=== PATIENT | female | born 1945 | race Caucasian/White ===

== ENCOUNTER → 2017-01-20 | Outpatient (CLI) | payer MEDICARE, OTHER ==
--- NOTE | 2017-01-20 22:56 | HKNOTE ---
DATE OF SERVICE: 01/20/2017 MAIN COMPLAINT: Pain in both knees. HISTORY OF MAIN COMPLAINT: The patient is a 71-year-old female who complains of pain in both knees. She has had trouble with her knees since she was a child, at age 14. She thinks she may have had recurrent dislocation of at least 1 patella. For 15 years, the patient is under the care of Dr. Roderick Dinh in [place]. He told her that she would eventually need bilateral knee replacements, but that "to wait until something better comes along." The pain has become very much worse in the past few months. She has had many cortisone injections i nto both knees and she also had Orthovisc into the left knee in August. This last injection gave her no relief whatsoever. The patient also has pain in her lower back. She fell and injured her back in 2006. She has had ph ysical therapy and chiropractic treatments for her back. She does not think she has had an MRI scan of the lower back. PRESENT COMPLAINTS: Pain in the lower back. Pain varies with twisting or stair climbing. Pain in both knees, worse on the left side. The patient gets pain in both knees every day. On a bad day, s he gets pain with every step. On a bad day, she can walk no more than a block or so using a cane. The knees do not lock or feel u nstable. The worst pain is going up and down stairs. She infrequently gets rest pain or night pain . She has tried taking Tylenol ("bothers my stomach"). NOTE THAT SHE IS ALLERGIC TO ALMOST ALL NSA IDS AND HE IS UNABLE TO TAKE NSAIDS FOR HER KNEE CONDITION. She limps some of the time. She does n ot have a shoe lift. She can clip her toenails and tie her shoelaces, but it is difficult. SPORTING ACTIVITIES: The patient used to play tennis and swim and bike. She has had to discontinue most of that. She is still doing weightlifting with light weights. PAST ORTHOPEDIC HISTORY: PREVIOUS ORTHOPEDIC OPERATIONS: None. PRIOR CORTISONE INTAKE: Yes, as above. The patient has also taken cortisone for asthma. ALCOHOL INTAKE: One a month. OTHER JOINT PROBLEMS: Pain in the left hip (groin). BLOOD TESTS FOR ARTHRITIS: "Yes, osteoarthritis". PRIOR INJURIES TO HIPS OR KNEES: None. WORK STATUS: The patient sits at a computer most of the day. PAST MEDICAL HISTORY: 1. Asthma. 2. Skin cancer of the face. 3. Mitral valve prolapse. 4. A "white spot" on the brain. 5. Anxiety disorder. 6. Chronic obstructive pulmonary disease. PAST SURGICAL HISTORY: 1. Mohs procedure at the age of 24 and 44. 2. Breast implants 35 years ago. 3. Carpal tunnel release, both hands. 4. Partial facelift. 5. Cataract surgery, both eyes. ALLERGIES: SEVERELY ALLERGIC TO CODEINE. MEDICATIONS: 1. Calcium. 2. Magnesium. 3. Zinc. 4. Glucosamine sulfate. 5. [place] 3 oil. FAMILY HISTORY: Father at 65 of heart problems. Mother at 84 from cancer. SYSTEMS REVIEW: Prone to dyspepsia, history of pneumonia, leakage of urine, cardiac defect. Otherw ise negative. HABITS: The patient does not smoke. She drinks 1 alcoholic beverage a month. PHYSICAL EXAMINATION: GENERAL: The patient is an extremely fit looking and youthful 71-year-old female. The patient is a lert, oriented, cooperative, and of good color. VITAL SIGNS: Height 5 feet 8 inches, weight 210 pounds. Blood pressure 145/70, temperature 98.7. RIGHT HIP: A full range of motion without pain. LEFT HIP: A full range of motion with pain in the left groin at limits of motion. LEFT KNEE: The left knee shows normal alignment. Active and passive extension is 0 degrees. Activ e and passive flexion lacks 25 degrees (markedly painful). The medial and lateral collateral ligame nts and cruciate ligaments are intact. Nereyda test is negative. There is no effusion, tenderness, scarring, or cysts. 4+ crepitus in the knee, none in the patella. The patella tracks normally. T here is no tenderness on the articular surface of the patella or in the patellar groove. The Q angl e is normal. RIGHT KNEE: The right knee shows normal alignment. Active and passive extension is 0 degrees. Act jeremías and passive flexion lacks 15 degrees (markedly painful). The medial and lateral collateral liga ments and cruciate ligaments are intact. Nereyda test is negative. There is no effusion, tendernes s, scarring, or cysts. 6+ crepitus in the knee, none in the patella. The patella tracks normally. There is no tenderness on the articular surface of the patella or in the patellar groove. The Q an gle is normal. IMAGING: Plain x-rays of the left ____ obtained today at the [facility] reviewed . These show marked narrowing of the medial joint space and severe narrowing of the patellofemoral joint space. There appear to be multiple loose bodies in the posterior aspect of the joint. Imaging of the right knee obtained today shows similar changes, but to a lesser degree, especially i n the medial compartment. Note that the patellofemoral joint on both knees show exceedingly severe arthritis with complete los s of joint space, subchondral sclerosis, intraosseous cyst formation, and osteophyte formation. Imaging of the left hip obtained today show approximately 60% narrowing of the hip joint space. Goo d bone quality. DIAGNOSES: 1. Severe symptomatic degenerative osteoarthritis of the left knee, failed conservative treatment. 2. Moderate degenerative osteoarthritis of the right knee. 3. Asthma. 4. Mitral valve prolapse. 5. Moderate degenerative osteoarthritis of the left hip. MANAGEMENT: The patient advised that Dr. Enrrique Dinh has been recommending knee replacement surger y for 15 years, now since it has become so severe that she is quite markedly incapacitated. She ind icates that she is "ready to consider knee replacement surgery." The operation of total knee replacement was discussed with her in a great deal of detail including s ome of the major possible complications. The patient was given my manual titled "Arthritis of the K nee Joint" which contains information concerning the various alternatives of treatment. It includes various forms of conservative treatment, including the use of nonsteroidal anti-inflammatory medica tions and their dangers. Various surgical alternatives are discussed. The technique of total knee replacement is discussed in detail, including possible complications. Included also is a section on the possible complications of blood transfusion, a section on postoperative precautions, and an exe rcise program to follow at home after total knee replacement. The long-term care of a total knee re placement implant is also covered in detail. The patient was instructed to read this manual in its entirety since it is, in and of itself, a form of informed consent. After reading this manual, the patient will make a list of further questions that may not have been covered adequately. The patien t was further advised that this manual, although exhaustive in nature, is only intended to supplemen t and complement a one-on-one discussion with me. The patient was referred to my website, [employer]. FINAL DIAGNOSES: 1. Severe symptomatic degenerative osteoarthritis of the left knee, failed conservative treatment. 2. Moderate degenerative osteoarthritis of the right knee. 3. Asthma. 4. Mitral valve prolapse. 5. Moderate degenerative osteoarthritis of the left hip. The patient will call to schedule her left knee replacement when she is ready to proceed. FOOTNOTE: We will inject some cortisone into her left hip while she is under anesthesia. Meanwhile , she will visit her suction worker and certified green building engineer for consultation in preparation for scheduling her s urgery. Dictated By: ROSIBEL SANDERS/MALU Conf#: [id number] DID#: [id number]
--- NOTE | 2017-01-21 11:53 | RADRPT ---
PROCEDURE: XR bilateral knees. CLINICAL INDICATION: Knee pain TECHNIQUE: AP weightbearing, lateral weightbearing and sunrise views are available for review. COMPARISON: None available FINDINGS: Right knee: There is moderate osteoarthrosis involving the right medial tibial femoral compartment and patellofe moral compartment .This is associated with joint space narrowing, subchondral sclerosis and osteophy tosis. Left knee: There is moderate osteoarthrosis involving the left medial tibial femoral compartment and mild oste oarthrosis involving the patellofemoral compartment. This is associated with joint space narrowing, subchondral sclerosis and osteophytosis. There are multiple small calcified loose bodies in the left posterior joint. There is otherwise normal mineralization, architecture and alignment. No fractures are identified. No osseous lesions are identified. The soft tissues are unremarkable. IMPRESSION: Moderate osteoarthrosis involving the right medial tibial femoral compartment and patellofemoral com partment Moderate osteoarthrosis involving the left medial tibial femoral compartment and mild osteoarthrosis involving the patellofemoral compartment. Multiple small calcified loose bodies in the left posterior joint. RPTAT: HGDB .Praneeth Stewart MD, Date Time Electronically viewed and signed by .Praneeth Stewart MD, on 01/21/2017 11:53 .B/
--- NOTE | 2017-01-21 11:54 | RADRPT ---
PROCEDURE: XR left hip. CLINICAL INDICATION: Hip pain TECHNIQUE: AP view performed COMPARISON: No prior studies are available for comparison. FINDINGS: There is moderate left hip osteoarthrosis. This is associated with joint space narrowing, subchondra l sclerosis and osteophytosis. There is normal mineralization. No fractures or osseous lesions are identified. The soft tissues are unremarkable. IMPRESSION: Moderate left hip osteoarthrosis. RPTAT: HGDB .Praneeth Stewart MD, MD Date Time Electronically viewed and signed by .Praneeth Stewart MD, on 01/21/2017 11:54 .B/
== END | disposition home or self-care (01) ==
LOC: HKI 14:48
DX: M17.0 Bilateral primary osteoarthritis of knee (principal); J45.909 Unspecified asthma, uncomplicated; I34.1 Nonrheumatic mitral (valve) prolapse; M16.12 Unilateral primary osteoarthritis, left hip
CPT/HCPCS: 73501; 73562; G0463

== ENCOUNTER → 2017-02-16 | Outpatient (CLI) | payer MEDICARE, OTHER ==
[~2017-02-16] MED LIST: AMLO5TAB4 PO
--- NOTE | 2017-02-17 11:32 | HKNOTE ---
DATE OF SERVICE: 02/16/2017 The patient comes in for preoperative evaluation. She is scheduled to have a left total knee replac ement on 02/17/2017. She has been cleared for surgery by her inpatient services rn, Dr. Paul Rodriguez. Numerou s questions were asked and answered. The patient has not had any real major surgeries in the past a nd the small ones she has had were uneventful. She has not given any blood for transfusion. She un derstands the risks associated with using hospital blood. She is agreeable to using hospital blood if needed. Dictated By: ROSIBEL SANDERS/NTS Conf#: [id number] DID#: [id number]
== END | disposition home or self-care (01) ==
LOC: HKI 13:23
DX: Z01.818 Encounter for other preprocedural examination (principal); M25.562 Pain in left knee
CPT/HCPCS: G0463

== ENCOUNTER 2017-02-17 05:21 | Inpatient (IN) | payer OTHER, MEDICARE ==
[2017-02-16 11:00] VITALS: BMI 32.2
[2017-02-17] VITALS (29 sets, daily range): BP systolic 110–170; BP diastolic 55–83; PULSE 54–95; RESP 3–20; Ht 175.3 cm; Wt 97.8 kg
[~2017-02-17] VITALS: Ht 175.3 cm; Wt 97.8 kg
[2017-02-17] MEDS ORDERED: KNEE PAIN COCKTAIL VANCO INJ SCH ×6 (05:30)
[2017-02-17] MEDS ORDERED: CELECOXIB 200 MG CAP PO ONE (06:00)
[2017-02-17] MEDS ORDERED: DEXAMETHASONE 4 MG/ML 1 ML INJ IV ONE (06:00)
[2017-02-17] MEDS ORDERED: LANSOPRAZOLE 30 MG CAP PO ONE (06:00)
[2017-02-17] MEDS ORDERED: ACETAMINOPHEN 1000MG/100ML IV 100 ML IVPB ONE (06:00)
[2017-02-17] MEDS ORDERED: LACTATED RINGER'S 1,000 ML IV* SCH (06:00)
[2017-02-17] MEDS ORDERED: TRANEXAMIC ACID IVPB ONE (06:00)
[2017-02-17] MEDS ORDERED: oxyCODONE (CR) 10 MG TAB [oxyCONTIN] PO ONE (06:00)
[2017-02-17] MEDS ORDERED: ONDANSETRON 4 MG INJ IV ONE (06:00)
[2017-02-17] MEDS ORDERED: SOD CHLORIDE 0.9% IVPB ONE (06:00)
[2017-02-17] MEDS ORDERED: VANCOMYCIN 1 GM (PMX) 250 ML IVPB ONE (06:00)
[2017-02-17] MEDS ORDERED: MIDAZOLAM 1 MG/ML 2 ML INJ ONE (06:18)
[2017-02-17] MEDS ORDERED: NEOSTIGMINE 3 MG/3 ML SYRINGE ONE (06:18)
[2017-02-17] MEDS ORDERED: GLYCOPYRROLATE 0.4 MG INJ ONE (06:18)
[2017-02-17] MEDS ORDERED: LIDOCAINE 2% (SDV) 5 ML INJ ONE (06:18)
[2017-02-17] MEDS ORDERED: ROCURONIUM 50 MG INJ ONE (06:18)
[2017-02-17] MEDS ORDERED: PROPOFOL 20 ML ONE (06:18)
[2017-02-17] MEDS ORDERED: FENTAnyl 50 MCG/ML VIAL ONE (06:19)
[2017-02-17] MEDS ORDERED: ONDANSETRON 4 MG INJ ONE (06:19)
[2017-02-17] MEDS ORDERED: DEXAMETHASONE 4 MG/ML 1 ML INJ ONE (06:19)
[2017-02-17] MEDS ORDERED: LIDOCAINE 2%/EPI 30 ML INJ ONE (06:29)
[2017-02-17] MEDS ORDERED: ONDANSETRON 4 MG INJ IV PRN (06:30)
[2017-02-17] MEDS ORDERED: MIDAZOLAM 1 MG/ML 2 ML INJ IV PRN (06:30)
[2017-02-17] MEDS ORDERED: LABETALOL HCL 20MG INJ IV PRN (06:30)
[2017-02-17] MEDS ORDERED: FENTAnyl 50 MCG/ML VIAL IV PRN ×2 (06:30)
[2017-02-17] MEDS ORDERED: DIPHENHYDRAMINE 50 MG INJ IV PRN (06:30)
[2017-02-17] MEDS ORDERED: hydrALAzine 20 MG INJ IV PRN (06:30)
[2017-02-17] MEDS ORDERED: MEPERIDINE 25 MG INJ IV PRN (06:30)
[2017-02-17] MEDS ORDERED: EPHEDrine SULFATE 50 MG/5 ML SYG IV PRN (06:30)
[2017-02-17] MEDS ORDERED: ATROPINE 1 MG/10 ML SYRINGE IV PRN (06:30)
[2017-02-17] MEDS ORDERED: METHYLENE BLUE 1% 10 ML INJ ONE (06:49)
[2017-02-17] MEDS ORDERED: TOBRAMYCIN 1.2 GM POWDER ONE (06:49)
[2017-02-17] MEDS ORDERED: VANCOMYCIN 1 GM INJ ONE (06:49)
[2017-02-17] MEDS ORDERED: POLYMYXIN B 500000 UNIT INJ ONE (06:49)
[2017-02-17] MEDS ORDERED: BUPIVACAINE 0.25%/EPI (SDV) 30 ML INJ ONE (06:50)
[2017-02-17] MEDS ORDERED: ROPIVACAINE 0.2% 100 ML ONE (06:50)
[2017-02-17] MEDS ORDERED: BACITRACIN 50000 UNITS INJ ONE (06:52)
[2017-02-17] MEDS ORDERED: EPHEDrine SULFATE 50 MG/5 ML SYG ONE (07:00)
[2017-02-17] MEDS ORDERED: SUCCINYLCHOLINE CHLORIDE 100 MG/5 ML SYG IV ONE (07:00)
--- NOTE | 2017-02-17 07:14 | HPN ---
Date/Time of Note Date/Time of Note DATE: 02/17/17 TIME: 07:14 Interval H&P Admission Note Pt. seen H&P reviewed: No system changes JOANNA HUGHES PA-C Feb 17, 2017 07:14
[2017-02-17] MEDS ORDERED: SOD CHLORIDE 0.9% IRR SCH ×2 (07:30)
[2017-02-17] MEDS ORDERED: TRANEXAMIC ACID IRR SCH ×2 (07:30)
[2017-02-17] MEDS ORDERED: ROPIVACAINE 0.2% 100ML BAG INJ ONE (08:52)
[2017-02-17] MEDS ORDERED: NALOXONE (0.4 MG/ML) INJ IV PRN (11:00)
[2017-02-17] MEDS ORDERED: BETHANECHOL 25 MG TAB PO PRN (11:00)
[2017-02-17] MEDS ORDERED: ZOLPIDEM 5 MG TAB PO PRN (11:00)
[2017-02-17] MEDS ORDERED: DOCUSATE SODIUM 100 MG CAP PO ONE ×2 (11:00→11:24)
[2017-02-17] MEDS ORDERED: MAGNESIUM HYDROXIDE 30ML CUP PO PRN (11:00)
[2017-02-17] MEDS ORDERED: BISACODYL 10 MG SUPP PR PRN (11:00)
[2017-02-17] MEDS ORDERED: ASPIRIN (EC) 325 MG TAB PO ONE ×2 (11:00→11:24)
[2017-02-17] MEDS ORDERED: COUMADIN NOTE XX SCH (11:00)
[2017-02-17] MEDS ORDERED: HYDROmorphONE 0.2 MG/ML PCA IV PRN (11:00)
[2017-02-17] MEDS ORDERED: NA PHOSPHATE/BIPHOS 133 ML ENEMA PR PRN (11:00)
[2017-02-17] MEDS ORDERED: DIPHENHYDRAMINE 50 MG INJ IM PRN (11:00)
[2017-02-17] MEDS ORDERED: MEPERIDINE 10 MG/ML 30 ML PCA IV PRN (11:00)
[2017-02-17] MEDS ORDERED: SENNA/DOCUSATE NA (8.6MG/50MG) TAB PO PRN (11:00)
[2017-02-17] MEDS: CEFAZOLIN 1 GM/50 ML (PMX) 50 ML IVPB SCH ×2 (11:28→19:24)
[2017-02-17] MEDS ORDERED: TRANEXAMIC ACID 980 MG in SOD CHLORIDE 0.9% 100 ML IVPB ONE ×2 (11:30→14:30)
[2017-02-17] MEDS: ONDANSETRON 4 MG INJ IV SCH ×3 (11:30→22:58)
[2017-02-17 11:38] LABS: ADD UMIC NO; URINE BILIRUBIN (Dip) NEGATIVE (NEGATIVE); URINE BLOOD (Dip) NEGATIVE (NEGATIVE); URINE COLOR LT. YELLOW (YELLOW); URINE GLUCOSE (Dip) NEGATIVE (NEGATIVE); URINE KETONES (Dip) NEGATIVE (NEGATIVE); URINE LEUKOCYTE ESTERASE (Dip) NEGATIVE (NEGATIVE); URINE NITRITE (Dip) NEGATIVE (NEGATIVE); URINE TOTAL PROTEIN (Dip) NEGATIVE (NEGATIVE); URINE UROBILINOGEN (Dip) 0.2 E.U./dL (0.1-1.0)
[2017-02-17] MEDS ORDERED: METOCLOPRAMIDE 10 MG INJ ONE (11:57)
[2017-02-17] MEDS ORDERED: METOCLOPRAMIDE 10 MG INJ IV PRN (12:00)
--- NOTE | 2017-02-17 12:33 | OPR ---
DATE OF OPERATION: 02/17/2017 SURGEON: Tyree Modi MD SUPERINTENDENT CUSTODIAN JANITOR: KI Tavares ANESTHESIOLOGIST: Dr. Barrios PREOPERATIVE DIAGNOSIS: Severe degenerative osteoarthritis of the left knee. POSTOPERATIVE DIAGNOSIS: Severe degenerative osteoarthritis of the left knee. PROCEDURE PERFORMED: Left total knee replacement. The Goby computer navigation system was use d for navigating the tibial cuts. FINDINGS AT SURGERY: The patient was found to have extremely severe degenerative osteoarthritis aff ecting predominantly the patellofemoral joint and the femoral condyle. Her bone quality was good. The arthritis was worse than was anticipated from the x-ray. Intraoperative photographs were obtain ed to demonstrate the extent of the arthritis. JUSTIFICATION FOR SURGERY: The knee was found to have end-stage osteoarthritis. The patient is a [place] active 71-year-old whose lifestyle is markedly affected by the arthritic knee. An extensive cou rse of conservative care has been tried prior to embarking on the knee replacement operation. There can be no reasonable expectation that any further conservative treatment will make any improvement to this patient's pain level and lifestyle. The risks and complications of the surgery were discuss ed with the patient at the preoperative visit as well as the risks and possible complications of blo od transfusion using hospital blood. The patient is agreeable to using hospital blood if needed. DESCRIPTION OF PROCEDURE: The patient was given intravenous antibiotics 1 hour prior to surgery. A n epidural anesthetic was initiated in the ICU holding area. The patient was taken to the operating room and given a light general anesthetic. The leg, foot, and ankle were prepared and draped in th e usual sterile fashion. The center of the ankle was marked at the midpoint between the 2 malleoli with a sterile marking pen. A tourniquet around the thigh was inflated to 150 mmHg after the leg livingston d been exsanguinated using an Esmarch bandage. The tourniquet was inflated at the initiation of pro cedure for a short period and was then again reinflated at the time of cementing the components part s. The total tourniquet time was 46 minutes. A longitudinal incision was made over the anterior aspect of the knee. The incision extended from t he tibial tubercle to a point just above the patella. The medial capsule was exposed by sharp and b yaneli dissection, and was incised 1/4 inch medial to the patella. A marking stitch was set on each s sol of the incision at the midpoint of the capsule so as to enable accurate reapproximation at the e nd of the operation. A vastus split was made in the vastus medialis extending from the superior juana e of the patella for approximately 5 cm between the line with the muscle fibers. The ends of the mu scle split at the patella were marked with a marking stitch on each side for later accurate reapprox imation. The patella was reflected laterally and osteophytes around the rim of the patella were rem everett. Osteophytes along the lateral femoral condyle were removed so as to facilitate lateral reflec tion of the patella. Posteromedial osteophytes were removed on the lateral side as well, so as to f ree up the lateral collateral ligament. Medial femoral osteophytes and posteromedial femoral osteop hytes were also removed at this time. This allowed for the knee to be brought into a more normal al ignment. A segment of bone was cut from the articular surface of the patella using a caliper to det ermine the exact thickness to be removed. The remaining thickness of the patella was 16 mm. The kn ee was flexed, and the patella was displaced laterally without eversion. Osteophytes in the femoral notch were removed. The remnants of the medial and lateral menisci were excised and the cruciate l igaments were excised. The medial collateral ligament was elevated as an osteo-periosteal flap from the proximal tibia. The distal end of the medial collateral ligament remained attached to the tibi a throughout the operation. The tibia was retracted forward with Hohmann retractor, inserted coring machine operator ior to the midpoint of the proximal tibia. The OrthAlign tibial jig was set in place in such a way as to align longitudinally with the anterior tibial spine, with the junction of the middle and media l 2/3 of the patella tendon, and with the posterior intercondylar eminence of the tibia. After adju stments were made, the posterior slope of the tibia was set at 6.5 degrees and the varus valgus angl e was set at 0 degrees. The tibial cutting block was attached to the proximal tibia with 2 Hillary n pins. An external alignment edvin was placed on the cutting block to confirm the alignment of the c utting block. An Juan Manuel Wing feeler gauge was now placed on the superior aspect of the cutting block to further confirm the posterior slope of the tibia and the depth of the cut to be made. An oscill ating saw was used to remove an appropriate amount of bone from the proximal tibia with the healthy side being used to measure the cutting depth. The lateral femoral condyle of the distal femur was m easured to determine the appropriate size for the femoral component. The anterior condyle of the fe mur was partially removed with a rongeur. A medium-sized cutting block was attached to the distal f emur with 2 Steinmann pins through the pin holes in the block. The external alignment jig of this c utting block was lined up with the anterior surface of the femur and a central intercondylar hole fo r the intramedullary edvin was drilled through the hole in the alignment block. The block was removed . A long Waterpik nozzle was used to flush fat from the intramedullary canal. The appropriately si zed cutting block was now attached to the femur by means of an intramedullary edvin. The linking guid e was inserted into the slot in the base of the femoral cutting block with the knee set at 90 degree s of flexion and with the linking guide set flush with the proximal tibial cut in order to set the a ppropriate rotational alignment on the femoral cutting block. Ligament balance was checked at this point and was found to be very satisfactory. Once the rotational alignment had been determined, and the ligaments found to be balanced, the femoral cutting block was secured to the distal femur with 2 Steinmann pins. The anterior and posterior cuts of the distal femur were made off the femoral cut ting block. The cutting block was removed and a spacer block was used to measure the flexion gap wh ich was found to be 12.5 mm. The same spacer block size without the femoral element was used with the leg in extension to determi ne the amount of distal femur to be removed in the transverse plane. A 5-degree distal cutting bloc k was now set on the femoral intramedullary edvin, and the edvin was inserted into the intramedullary ca nal. The appropriate amount of bone to be removed was determined. The femoral cutting block was pi nned to the anterior surface of the femur with 2 Steinmann pins. The appropriate amount of bone was resected off the distal femur to give an extension gap equal to the thickness of the flexion gap. The cut needed to be repeated after initial cut in order to produce an extension gap the same size a s the flexion gap. By using the appropriate cutting blocks, the rest of the femoral cuts were made. The femoral trial component was installed and was found to fit perfectly. The femoral trial component was removed. T he proximal tibia was sized, and the appropriate tibial tray selected. The central fixation hole in the tibia was made using the tibial tray template and the appropriate instruments. The femoral and tibial trials and the trial tibial insert were installed, and the patella was prepared to accept th e 35 mm-sized dome component. The trial components were all removed. The tourniquet was inflated. Soft tissues around the knee, especially the posterior capsule, were injected with a mixture of Davion opin, Toradol, morphine, and clonidine. The cut surfaces of the bones were cleaned with pulsatile W ater Jet lavage and thoroughly dried. Sclerotic bone surfaces were drilled with a 1/8-inch drill. The tibial trial component was installed with methyl methacrylate cement followed by the femoral com ponent and finally the patellar component. Cement was used on all 3 components. The cement was fin pari packed into the cut surfaces of the bone and pressurized with a rubber dam in order to get good interdigitation of the cement into the bone. A lateral x-ray of the knee was obtained while the muna ent was hardening with the 12.[address] Once the cement was hard, all extraneous cement was removed. The cut edges of the medial capsule were held together at the midpoint with a towel c lip, and the knee was put through a full range of motion. The patella was found to track satisfacto rily. A lateral release was not required. At this point, the patella was found to track very well in the patellar groove of the femoral component. The knee was frequently irrigated with normal saline containing antibiotics with pulsatile lavage th roughout the entire operation as a prophylactic measure against infection. Once the cement was hard , the tourniquet was released. Bleeding points were cauterized. The total tourniquet time was 46 m inutes. The patient's vital signs remained stable throughout the operation. The permanent rotating bearing was installed. Superficial and deep Hemovac drains were set in place . The wound was closed using interrupted Vicryl on the capsule with FiberWire used at strategic poi nts such as the attachment of the distal ends of the vastus medialis at the split, and the tibial te ndon was also attached to the osteo-periosteal flap with FiberWire. The rest of the medial capsule was closed with interrupted Vicryl. A subcuticular stitch was inserted and rodrigo were used on the skin. The usual sterile dressings were applied. A Ortega-Rizzo compression dressing was applied a fter a sterile cooling pad had been set in place against the deep tissues by sterile cast padding. The patient's condition at the end of the procedure was satisfactory. Vital signs remained stable t hroughout the operation. The patient returned to the recovery room in stable condition. X-rays wer e obtained in the recovery room. Calf pumps were applied to both legs in the operating room. There were no problems or complications as far as we know. The sponge and instrument counts were correct . COMPONENT INFORMATION: KNEE IMPLANT TYPE: LCS. FEMORAL COMPONENT SIZE: Large TIBIAL COMPONENT SIZE: 3 PATELLAR COMPONENT SIZE: 35 mm dome TIBIAL INSERT: 12.5 mm posterior stabilized deep dish mobile bearing IMPLANT SOLID WASTE FACILITY SUPERVISOR: [facility] [employer] [facility] [place], [place]. TOTAL TOURNIQUET TIME: 46 minutes TOTAL BLOOD LOSS: Less than 150 mL Dictated By: TYREE SANDERS/MALU Conf#: [id number] DID#: [id number]
--- NOTE | 2017-02-17 13:09 | RADRPT ---
PROCEDURE: XR Knee. CLINICAL INDICATION: Status post knee replacement TECHNIQUE: AP and lateral view of the left knee were obtained. The images reviewed on a PACS work station. COMPARISON: January 20, 2017 FINDINGS: Complete left knee replacement is identified. Prosthetic components are in appropriate position and alignment. No fractures or destructive lesions are observed. Surgical drain is seen in the knee. Soft tissue air is procedural in nature. IMPRESSION: Status post left knee replacement. Prosthetic components are in appropriate position and alignment. RPTAT: AA .Bryant Callaway MD, MD Date Time Electronically viewed and signed by .Bryant Callaway MD, MD on 02/17/2017 13:09 .P/
--- NOTE | 2017-02-17 13:11 | RADRPT ---
PROCEDURE: XR Knee 2 Views. CLINICAL INDICATION: Left knee replacement. Intraoperative exam. TECHNIQUE: Intraoperative AP and lateral view of the left knee were obtained. The images reviewed on a PACS workstation. COMPARISON: January 20, 2017 FINDINGS: Intraoperative components of the left knee replacement appear in grossly appropriate position and al ignment. No destructive bony lesions are observed. IMPRESSION: Intraoperative components of the left knee replacement and grossly appropriate position and alignmen t. Please see procedure note for details. RPTAT: AA .Bryant Callaway MD, MD Date Time Electronically viewed and signed by .Bryant Callaway MD, on 02/17/2017 13:10 .P/
[2017-02-17] MEDS: ACETAMINOPHEN 1000MG/100ML IV 100 ML IVPB SCH ×2 (14:00→21:37)
[2017-02-17] MEDS ORDERED: HYDROmorphONE 4 MG/ML SYG IV PRN (16:00)
[2017-02-17] MEDS: DEXTROSE 5%-LR 1,000 ML IV SCH ×2 (17:08→23:14)
--- NOTE | 2017-02-17 23:04 | PREOPHP ---
DATE OF ADMISSION: 02/17/2017 TYPE OF CONSULTATION: Medical. Thank you, Dr. Modi, for asking me to participate in medical management of this patient. HISTORY OF PRESENT ILLNESS: This 71-year-old female is now postop a left total knee replacement by Dr. oMdi. The patient is awake and alert. The patient does have some nausea and has had some vomiting. I would was asked to see the patient to help manage her asthma and hypertension. The pa rick denies any chest pain or shortness of breath. She seems otherwise comfortable except for the nausea. PAST MEDICAL HISTORY: Remarkable for asthma, hypertension, mitral valve prolapse, skin cancers hawk anderson from face, breast implants and abnormal Pap smear 2 weeks ago for an infection, osteopenia, hepa titis and liver cysts, some cognitive impairment. PAST SURGICAL HISTORY: Left ovary removed after rupture in 1988. Colonoscopy with no polyps. [place] noscopy, no polyps. Upper endoscopy with hiatal hernia and gastritis in 2013, bilateral carpal tunn el repair, bilateral breast implants. CURRENT MEDICATIONS: 1. Amlodipine 5 mg a day. 2. Macrodantin 100 mg twice a day. FAMILY HISTORY: Both parents are . Father of a heart attack. Mother of a CVA. SOCIAL HISTORY: The patient does not smoke, does not use recreational drugs. She drinks alcohol ra rely. 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 ALLERGIES: 1. CODEINE - UPSET STOMACH. 2. NONSTEROIDAL ANTIINFLAMMATORY DRUGS - UPSET STOMACH. PHYSICAL EXAMINATION: GENERAL: At this time reveals a well-developed female in no apparent distress. VITAL SIGNS: Temperature 98, pulse of 58, respirations 18, blood pressure 122/60, O2 saturation 100 % on nasal cannula. HEENT: Head normocephalic. Eyes: Extraocular muscles intact. NOSE AND MOUTH: Normal. NECK: Supple. No neck vein distention. LUNGS: Clear to auscultation. HEART: Regular rhythm. No murmurs, gallops or rubs. ABDOMEN: Soft, nontender, no masses or organomegaly. EXTREMITIES: No peripheral edema. IMPRESSION: This patient is now postop a left total knee replacement. She is awake and alert. She does have some postoperative nausea and vomiting. She does have a history of hypertension, which I will manage. She also has a history of an abnormal Pap smear which was thought to be an infection and was started on Macrodantin. PLAN: 1. Resume routine medications. 2. Check labs in the morning. 3. Postoperative total knee replacement. 4. I will follow the patient along with you. Dictated By: SANDI SKY MD, ND/NTS Conf#: [id number] DID#: [id number]
[2017-02-18 01:00] VITALS: BP 111/56; RESP 20
[2017-02-18] MEDS: CEFAZOLIN 1 GM/50 ML (PMX) 50 ML IVPB SCH (03:06)
[2017-02-18 04:00] VITALS: BP 123/56; PULSE 63; RESP 18
[2017-02-18] MEDS: ONDANSETRON 4 MG INJ IV SCH (05:03)
[2017-02-18] MEDS: DEXTROSE 5%-LR 1,000 ML IV SCH (05:03)
[2017-02-18 05:09] LABS: ADD SCAN DIFF NO
[2017-02-18 05:16] LABS: BASOPHILS % 0.1 % (0.0-2.0); HEMATOCRIT 32.3 % (37.0-47.0); HEMOGLOBIN 10.5 g/dl (12.0-16.0); LYMPHOCYTES # 0.8 10^3/ul (0.8-2.9); MEAN CORPUSCULAR HEMOGLOBIN 30.2 pg (29.0-33.0); MEAN CORPUSCULAR HGB CONC 32.5 g/dl (32.0-37.0); MEAN CORPUSCULAR VOLUME 92.8 fl (82.0-101.0); MEAN PLATELET VOLUME 10.4 fl (7.4-10.4); MONOCYTE # 0.5 10^3/ul (0.3-0.9); MONOCYTES % 4.1 % (0.0-11.0); NEUTROPHIL # 9.9 10^3/ul (1.6-7.5); NEUTROPHILS % 88.3 % (39.0-77.0); PLATELET COUNT 207 10^3/UL (140-415); RED BLOOD COUNT 3.48 10^6/ul (4.20-5.40); RED CELL DISTRIBUTION WIDTH 12.9 % (11.5-14.5); WHITE BLOOD COUNT 11.2 10^3/ul (4.8-10.8)
[2017-02-18 05:31] LABS: ALBUMIN/GLOBULIN RATIO 1.36; BILIRUBIN,INDIRECT 0.1 mg/dl (0-1.1); BILIRUBIN,TOTAL 0.1 mg/dl (0.2-1.3); CALCIUM 8.8 mg/dl (8.4-10.2); CREATININE 0.67 mg/dl (0.44-1.00); POTASSIUM 4.3 mmol/L (3.5-5.1); TOTAL PROTEIN 5.2 g/dl (6.1-8.1)
[2017-02-18] MEDS ORDERED: KETOROLAC 15 MG INJ INJ PRN (06:00)
[2017-02-18] MEDS ORDERED: BUPIVACAINE 0.25%/EPI (SDV) 30 ML INJ INJ PRN (06:00)
[2017-02-18] MEDS: DEXAMETHASONE 4 MG/ML 1 ML INJ IV SCH (06:02)
[2017-02-18] MEDS: ACETAMINOPHEN 1000MG/100ML IV 100 ML IVPB SCH ×3 (06:03→21:07)
[2017-02-18 06:51] LABS: ADD UMIC NO; URINE BILIRUBIN (Dip) NEGATIVE (NEGATIVE); URINE BLOOD (Dip) NEGATIVE (NEGATIVE); URINE COLOR LT. YELLOW (YELLOW); URINE GLUCOSE (Dip) NEGATIVE (NEGATIVE); URINE KETONES (Dip) NEGATIVE (NEGATIVE); URINE LEUKOCYTE ESTERASE (Dip) NEGATIVE (NEGATIVE); URINE NITRITE (Dip) NEGATIVE (NEGATIVE); URINE TOTAL PROTEIN (Dip) NEGATIVE (NEGATIVE); URINE UROBILINOGEN (Dip) 0.2 E.U./dL (0.1-1.0)
[2017-02-18 07:28] VITALS: BP 129/60; RESP 18
--- NOTE | 2017-02-18 08:42 | PN ---
Date/Time of Note Date/Time of Note DATE: 02/18/17 TIME: 08:40 Assessment/Plan VTE Prophylaxis VTE Prophylaxis Intervention: ambulation, anti-embolic stocking, SCD's, other ( Aspirin 325 mg twice daily.) Lines/Catheters IV Catheter Type (from Nrsg): Peripheral IV Bonner in Place (from Nrsg): Yes Assessment/Plan Assessment/Plan -Hemovac Removed Today. 140 cc output. -Pain Cocktail Given -Pain Meds as needed -Dress change performed today -OOB with PT -ASA/SCDs for DVT Prophylaxis -Continue monitoring with Internal Medicine -Patient Stable Subjective 24 Hr Interval Summary 71-year-old female postop day 1 left total knee arthroplasty. Denies any pain complaints overnight. Patient suffered from significant nausea while anesthesia was wearing off. Was unable to perform physical therapy yesterday. No longer experiencing nausea controlled with Zofran. Denies any fever, chills or malaise. Denies any chest pain/tightness. No calf pain or shortness of breath. Constitutional: no complaints Pain Control: well controlled Exam/Review of Systems Vital Signs Vitals Vital Signs Date Time Temp Pulse Resp B/P Pulse Ox O2 Delivery O2 Flow Rate FiO2 02/18/17 07:28 97.5 60 18 129/60 99 02/18/17 04:00 Nasal Cannula 2.0 Intake and Output 02/17/17 02/17/17 02/18/17 15:00 23:00 07:00 Intake Total 1500 ml 700 ml 950 ml Output Total 730 ml 840 ml 980 ml Balance 770 ml -140 ml -30 ml Exam Free Text/Dictation -Hemovac: Intact. 140 cc output. -Pain Cocktail Drains: Intact -Incision: Clean, Dry and Intact without any redness or drainage -5/5 Tibialis Anterior, EHL Gastrocnemius/Soleus and Peroneals -5 lag from full extension with active flexion up to 80. -Normal Sensation -Palpable DP/PT, Capillary Refill <2 secs -No Distal Edema -Negative Angelica Sign/No calf pain -Toes Freely Movable Constitutional: alert, oriented, well developed Results Result Diagram: 02/18/17 0415 02/18/17 0415 JOANNA HUGHES PA-C Feb 18, 2017 08:42
[2017-02-18] MEDS: FERROUS FUMARATE (SR) TAB PO SCH ×3 (09:00→20:22)
[2017-02-18] MEDS ORDERED: oxyCODONE 5 MG TAB PO PRN ×3 (09:00)
[2017-02-18] MEDS: CELECOXIB 200 MG CAP PO SCH ×2 (09:00→20:22)
[2017-02-18] MEDS: DOCUSATE SODIUM 100 MG CAP PO SCH ×2 (09:15→20:22)
[2017-02-18] MEDS: AMLODIPINE 5 MG TAB PO SCH (09:15)
[2017-02-18] MEDS: ASPIRIN (EC) 325 MG TAB PO SCH ×2 (09:15→20:22)
--- NOTE | 2017-02-18 10:42 | CONS ---
Date/Time of Note Date/Time of Note DATE: 02/18/17 TIME: 10:40 Assessment/Plan Assessment/Plan Additional Assessment/Plan 1. Stable post op left knee repalcement 2. BP is well controlled 3. Labs rev Consultation Date/Type/Reason Admit Date/Time Feb 17, 2017 at 05:21 Initial Consult Date Detailed Summary Respiratory: No cough, No shortness of breath Cardiovascular: No chest pain Gastrointestinal: no complaints Genitourinary: no complaints Musculoskeletal: bone/joint pain (mild left knee pain) Exam/Review of Systems Vital Signs Vitals Vital Signs Date Time Temp Pulse Resp B/P Pulse Ox O2 Delivery O2 Flow Rate FiO2 02/18/17 07:28 97.5 60 18 129/60 99 02/18/17 04:00 Nasal Cannula 2.0 Intake and Output 02/17/17 02/17/17 02/18/17 15:00 23:00 07:00 Intake Total 1500 ml 700 ml 950 ml Output Total 730 ml 840 ml 980 ml Balance 770 ml -140 ml -30 ml Exam Neck: No jvd Respiratory: clear to auscultation Cardiovascular: regular rate and rhythm Gastrointestinal: soft Extremities: No edema (and no calf tend) Results Result Diagram: 02/18/17 0415 02/18/17 0415 Results 24 hrs Laboratory Tests Test 02/17/17 11:05 02/18/17 04:15 Urine Color LT. YELLOW LT. YELLOW Urine Clarity CLEAR CLEAR Urine pH 6.5 6.0 Urine Specific Tuttle <=1.005 L 1.010 Urine Ketones NEGATIVE NEGATIVE Urine Nitrite NEGATIVE NEGATIVE Urine Bilirubin NEGATIVE NEGATIVE Urine Urobilinogen 0.2 E.U./dL 0.2 E.U./dL Urine Leukocyte Esterase NEGATIVE NEGATIVE Urine Hemoglobin NEGATIVE NEGATIVE Urine Glucose NEGATIVE NEGATIVE Urine Total Protein NEGATIVE NEGATIVE White Blood Count 11.2 H Red Blood Count 3.48 L Hemoglobin 10.5 L Hematocrit 32.3 L Mean Corpuscular Volume 92.8 Mean Corpuscular Hemoglobin 30.2 Mean Corpuscular Hemoglobin Concent 32.5 Red Cell Distribution Width 12.9 Platelet Count 207 Mean Platelet Volume 10.4 Neutrophils % 88.3 H Lymphocytes % 7.0 L Monocytes % 4.1 Eosinophils % 0.0 Basophils % 0.1 Nucleated Red Blood Cells % 0.0 Neutrophils # 9.9 H Lymphocytes # 0.8 Monocytes # 0.5 Eosinophils # 0.0 Basophils # 0.0 Nucleated Red Blood Cells # 0.0 Sodium Level 134 L Potassium Level 4.3 Chloride Level 107 Carbon Dioxide Level 25 Anion Gap 6 L Blood Urea Nitrogen 9 Creatinine 0.67 Glucose Level 137 Calcium Level 8.8 Total Bilirubin 0.1 L Direct Bilirubin 0.00 Indirect Bilirubin 0.1 Aspartate Amino Transf (AST/SGOT) 20 Alanine Aminotransferase (ALT/SGPT) 30 Alkaline Phosphatase 51 Total Protein 5.2 L Albumin 3.0 L Globulin 2.20 Albumin/Globulin Ratio 1.36 Medications Medications Current Medications Dextrose/Lactated Ringer's (D5-Lr) 1,000 ml @ 80 mls/hr [id number] IV Last administered on 02/18/17 05:03; Admin Dose 80 MLS/HR; Start 02/17/17 at 10:44 Hydromorphone HCl (Dilaudid ARMORED CAR MESSENGER) Q4PCA PRN IV SEVERE PAIN 8-10; Start at 11:00; Stop 02/18/17 at 10:59 Meperidine HCl (Demerol ARMORED CAR MESSENGER) Q4PCA PRN IV SEVERE PAIN 8-10; Start 02/17/17 at 11:00; Stop 02/18/17 at 10:59 Oxycodone HCl (Roxicodone) 20 mg Q3H PRN PO PAIN LEVEL 8-10; Start 02/18/17 at 09:00 Oxycodone HCl (Roxicodone) 10 mg Q3H PRN PO PAIN LEVEL 4-7; Start 02/18/17 at 09:00 Oxycodone HCl 5 mg 5 mg Q3H PRN PO PAIN LEVEL 1-3; Start 02/18/17 at 09:00 Acetaminophen (Ofirmev 1000mg/ 100ml Iv) 100 ml @ 400 mls/hr Q8 IVPB Last administered on 02/18/17 06:03; Admin Dose 400 MLS/HR; Start 02/17/17 at 14:00 ; Stop 02/19/17 at 06:14 Zolpidem Tartrate (Ambien) 5 mg HS PRN PO INSOMNIA; Start 02/17/17 at 11:00 Miscellaneous Information (Note) NOTE XX ; Start 02/17/17 at 11:00 Aspirin (Ecotrin) 325 mg BID PO Last administered on 02/18/17 09:15; Admin Dose 325 MG; Start 02/18/17 at 09:00 Celecoxib (Celebrex) 200 mg BID PO ; Start 02/18/17 at 09:00 Dexamethasone (Decadron) 4 mg DAILY@07 IV Last administered on 02/18/17 06:02 ; Admin Dose 4 MG; Start 02/18/17 at 07:00; Stop 02/21/17 at 06:59 Pantoprazole (Protonix Tab) 40 mg DAILY@06 PO ; Start 02/19/17 at 06:00 Docusate Sodium/ Ferrous Fumarate (Vee-Sequels) 1 tab BID PO Last administered on 02/18/17 09:18; Admin Dose 1 TAB; Start 02/18/17 at 09:00 Docusate Sodium (Colace) 200 mg BID PO Last administered on 02/18/17 09:15; Admin Dose 200 MG; Start 02/18/17 at 09:00; Stop 02/21/17 at 08:59 Simethicone (Mylicon) 80 mg TID PRN PO DISTENSION/GAS/BLOATING; Start 02/17/17 at 11:00 Senna/Docusate Sodium (Senokot-S) 2 tab BID PRN PO CONSTIPATION; Start at 11:00 Magnesium Hydroxide (Milk Of Mag) 30 ml HS PRN PO CONSTIPATION; Start 02/17/17 at 11:00 Bisacodyl (Dulcolax Supp) 10 mg DAILY PRN [place] CONSTIPATION; Start 02/17/17 at 11 :00 Sodium Biphosphate/ Sodium Phosphate (Fleet Enema) 133 ml DAILY PRN [place] CONSTIPATION; Start 02/17/17 at 11:00 Diphenhydramine HCl (Benadryl) 25 mg Q4H PRN IM ITCHING OR RASH; Start at 11:00 Ketorolac Tromethamine (Toradol) 15 mg DAILY@06 PRN INJ ADMINSTER BY SURGEON ONLY; Start 02/18/17 at 06:00; Stop 02/22/17 at 05:59 Bupivacaine HCl/ Epinephrine Bitart (Marcaine 0.25%/ Epi (Sdv) 30 ml) 20 ml DAILY@06 PRN INJ ADMINSTER BY SURGEON ONLY; Start 02/18/17 at 06:00; Stop at 05:59 Naloxone HCl (Narcan) 0.2 mg Q2M PRN IV DECREASED REPIRATORY RATE; Start at 11:00 Hydromorphone HCl (Dilaudid) 3 mg Q4H PRN IV PAIN; Start 02/17/17 at 16:00 Amlodipine Besylate (Norvasc) 5 mg DAILY PO Last administered on 02/18/17t 09: 15; Admin Dose 5 MG; Start 02/18/17 at 09:00 EVA COSTA MD Feb 18, 2017 10:42
[2017-02-18 20:30] VITALS: BP 128/65; RESP 18
[2017-02-19] MEDS: DEXTROSE 5%-LR 1,000 ML IV SCH ×2 (00:14→12:44)
[2017-02-19 05:20] LABS: ADD SCAN DIFF NO
[2017-02-19 05:26] LABS: BASOPHILS % 0.2 % (0.0-2.0); EOSINOPHILS # 0.1 10^3/ul (0.0-0.5); EOSINOPHILS % 0.7 % (0.0-7.0); HEMATOCRIT 30.4 % (37.0-47.0); HEMOGLOBIN 9.8 g/dl (12.0-16.0); LYMPHOCYTES % 21.7 % (15.0-51.0); MEAN CORPUSCULAR HEMOGLOBIN 30.2 pg (29.0-33.0); MEAN CORPUSCULAR HGB CONC 32.2 g/dl (32.0-37.0); MEAN CORPUSCULAR VOLUME 93.8 fl (82.0-101.0); MEAN PLATELET VOLUME 10.9 fl (7.4-10.4); MONOCYTE # 0.4 10^3/ul (0.3-0.9); MONOCYTES % 4.6 % (0.0-11.0); NEUTROPHIL # 6.6 10^3/ul (1.6-7.5); NEUTROPHILS % 72.4 % (39.0-77.0); PLATELET COUNT 183 10^3/UL (140-415); RED BLOOD COUNT 3.24 10^6/ul (4.20-5.40); RED CELL DISTRIBUTION WIDTH 13.3 % (11.5-14.5); WHITE BLOOD COUNT 9.1 10^3/ul (4.8-10.8)
[2017-02-19] MEDS: ACETAMINOPHEN 1000MG/100ML IV 100 ML IVPB SCH (05:38)
[2017-02-19] MEDS: DEXAMETHASONE 4 MG/ML 1 ML INJ IV SCH (05:39)
[2017-02-19] MEDS ORDERED: PANTOPRAZOLE (EC) 40 MG TAB PO SCH (06:00)
[2017-02-19 07:00] VITALS: BP 146/63; RESP 16
--- NOTE | 2017-02-19 08:12 | PDOCDIS ---
Discharge Instructions DIAGNOSIS Discharge Diagnosis: Status post left total knee arthroplasty. CONDITION Patient Condition: Stable HOME CARE INSTRUCTIONS: Diet Instructions: RegularSpecial Diet: N/A ACTIVITY: Activity Restrictions: Slowly Increase Activity Rest between Activity Avoid heavy lifting No Sexual Activity Do not Drive Do not operate Machinery Do not operate Power Tool Avoid Heavy Housework Keep Limb Elevated (While at rest. Ice modalities encouraged.) Weight Bearing (As tolerated with use of front wheeled walker.) Bathing Restrictions: Shower (With use of Tegaderm with pad. Apply prior to shower. Pat area dry gently with towel. Remove after shower. Repeat steps until rodrigo are removed around 10 days postoperatively.) FOLLOW UP/APPOINTMENTS Appointments Follow-up on March 10, 2017 at 2:15 PM. JOANNA HUGHES PA-C Feb 19, 2017 08:12
--- NOTE | 2017-02-19 08:15 | PN ---
Date/Time of Note Date/Time of Note DATE: 02/19/17 TIME: 08:13 Assessment/Plan VTE Prophylaxis VTE Prophylaxis Intervention: ambulation, SCD's, other (Aspirin 325 mg twice daily) Lines/Catheters IV Catheter Type (from Nrsg): Saline Lock Bonner in Place (from Nrsg): Yes Assessment/Plan Assessment/Plan -Pain Cocktail Given. Drains removed. Dermabond applied. -Pain Meds as needed -Dress change performed today -ASA for DVT Prophylaxis x 6 weeks outpatient discussed. -Continue monitoring as outpatient on discharge -Follow-up at scheduled postop outpatient appointment or sooner if there is any issue. -Tegaderm dressings given with specific instructions to use as outpatient to keep wound dry until rodrigo are moved around 10 days. -Patient Stable -Discharge to Home with home health if cleared by internal medicine. Patient is cleared from orthopedic standpoint. Subjective 24 Hr Interval Summary 71-year-old female postop day 2 status post left total knee arthroplasty. Denies any pain complaints. Denies any chest pain/tightness, shortness of breath or calf pain. Patient is up and walking throughout the hallways. Has upcoming physical therapy to work on stairs. She does have complaints of recent nasal congestion. Patient was blowing nose harshly and suffered epistaxis. Epistaxis was self-limiting. No complaints of the left knee. Pain Control: well controlled Exam/Review of Systems Vital Signs Vitals Vital Signs Date Time Temp Pulse Resp B/P Pulse Ox O2 Delivery O2 Flow Rate FiO2 02/19/17 07:00 97.7 61 16 146/63 92 02/18/17 04:00 Nasal Cannula 2.0 Intake and Output 02/18/17 02/18/17 02/19/17 15:00 23:00 07:00 Intake Total 100 ml 1860 ml 800 ml Output Total 700 ml 650 ml Balance 100 ml 1160 ml 150 ml Exam Free Text/Dictation -Hemovac: Removed -Pain Cocktail Drains: Intact -Incision: Clean, Dry and Intact without any redness or drainage -5/5 Tibialis Anterior, EHL Gastrocnemius/Soleus and Peroneals -Normal Sensation -Palpable DP/PT, Capillary Refill <2 secs -No Distal Edema -Negative Angelica Sign/No calf pain -Toes Freely Movable Constitutional: alert, oriented, well developed Results Result Diagram: 02/19/17 0439 02/18/17 0415 JOANNA HUGHES PA-C Feb 19, 2017 08:15
[2017-02-19] MEDS: DOCUSATE SODIUM 100 MG CAP PO SCH ×2 (08:59→20:23)
[2017-02-19] MEDS: CELECOXIB 200 MG CAP PO SCH ×2 (08:59→20:23)
[2017-02-19] MEDS: FERROUS FUMARATE (SR) TAB PO SCH ×2 (08:59→20:23)
[2017-02-19] MEDS: ASPIRIN (EC) 325 MG TAB PO SCH ×2 (08:59→20:22)
[2017-02-19] MEDS: AMLODIPINE 5 MG TAB PO SCH (09:00)
--- NOTE | 2017-02-19 10:35 | CONS ---
Date/Time of Note Date/Time of Note DATE: 02/19/17 TIME: 10:32 Assessment/Plan Assessment/Plan Additional Assessment/Plan 1. Stable post op left hip replacement and can be dc if ok with pt and ortho 2. BP control is excellent Consultation Date/Type/Reason Admit Date/Time Feb 17, 2017 at 05:21 Detailed Summary Cardiovascular: No chest pain, No lightheadedness Gastrointestinal: other (mild bloating, has not had bm yet) Genitourinary: no complaints Musculoskeletal: bone/joint pain (mild left knee pain) Exam/Review of Systems Vital Signs Vitals Vital Signs Date Time Temp Pulse Resp B/P Pulse Ox O2 Delivery O2 Flow Rate FiO2 02/19/17 07:00 97.7 61 16 146/63 92 02/18/17 04:00 Nasal Cannula 2.0 Intake and Output 02/18/17 02/18/17 02/19/17 15:00 23:00 07:00 Intake Total 100 ml 1860 ml 800 ml Output Total 700 ml 650 ml Balance 100 ml 1160 ml 150 ml Exam Neck: non-tender, No jvd Respiratory: clear to auscultation Cardiovascular: regular rate and rhythm Gastrointestinal: soft Extremities: No edema (and no calf tend) Results Result Diagram: 02/19/17 0439 02/18/17 0415 Results 24 hrs Laboratory Tests Test 02/19/17 04:39 White Blood Count 9.1 Red Blood Count 3.24 L Hemoglobin 9.8 L Hematocrit 30.4 L Mean Corpuscular Volume 93.8 Mean Corpuscular Hemoglobin 30.2 Mean Corpuscular Hemoglobin Concent 32.2 Red Cell Distribution Width 13.3 Platelet Count 183 Mean Platelet Volume 10.9 H Neutrophils % 72.4 Lymphocytes % 21.7 Monocytes % 4.6 Eosinophils % 0.7 Basophils % 0.2 Nucleated Red Blood Cells % 0.0 Neutrophils # 6.6 Lymphocytes # 2.0 Monocytes # 0.4 Eosinophils # 0.1 Basophils # 0.0 Nucleated Red Blood Cells # 0.0 Medications Medications Current Medications Dextrose/Lactated Ringer's (D5-Lr) 1,000 ml @ 80 mls/hr [id number] IV Last administered on 02/18/17t 05:03; Admin Dose 80 MLS/HR; Start 02/17/17 at 10:44 Oxycodone HCl (Roxicodone) 20 mg Q3H PRN PO PAIN LEVEL 8-10; Start 02/18/17 at 09:00 Oxycodone HCl (Roxicodone) 10 mg Q3H PRN PO PAIN LEVEL 4-7; Start 02/18/17 at 09:00 Oxycodone HCl (Roxicodone) 5 mg Q3H PRN PO PAIN LEVEL 1-3; Start 02/18/17 at 09 :00 Zolpidem Tartrate (Ambien) 5 mg HS PRN PO INSOMNIA; Start 02/17/17 at 11:00 Miscellaneous Information (Note) NOTE XX ; Start 02/17/17 at 11:00 Aspirin (Ecotrin) 325 mg BID PO Last administered on 02/19/17 08:59; Admin Dose 325 MG; Start 02/18/17 at 09:00 Celecoxib (Celebrex) 200 mg BID PO Last administered on 02/19/17 08:59; Admin Dose 200 MG; Start 02/18/17 at 09:00 Dexamethasone (Decadron) 4 mg DAILY@07 IV Last administered on 02/19/17 05:39 ; Admin Dose 4 MG; Start 02/18/17 at 07:00; Stop 02/21/17 at 06:59 Pantoprazole (Protonix Tab) 40 mg DAILY@06 PO Last administered on 02/19/17 05 :39; Admin Dose 40 MG; Start 02/19/17 at 06:00 Docusate Sodium/ Ferrous Fumarate (Vee-Sequels) 1 tab BID PO Last administered on 02/19/17 08:59; Admin Dose 1 TAB; Start 02/18/17 at 09:00 Docusate Sodium (Colace) 200 mg BID PO Last administered on 02/19/17 08:59; Admin Dose 200 MG; Start 02/18/17 at 09:00; Stop 02/21/17 at 08:59 Simethicone (Mylicon) 80 mg TID PRN PO DISTENSION/GAS/BLOATING; Start 02/17/17 at 11:00 Senna/Docusate Sodium (Senokot-S) 2 tab BID PRN PO CONSTIPATION; Start at 11:00 Magnesium Hydroxide (Milk Of Mag) 30 ml HS PRN PO CONSTIPATION; Start 02/17/17 at 11:00 Bisacodyl (Dulcolax Supp) 10 mg DAILY PRN [place] CONSTIPATION; Start 02/17/17 at 11 :00 Sodium Biphosphate/ Sodium Phosphate (Fleet Enema) 133 ml DAILY PRN [place] CONSTIPATION; Start 02/17/17 at 11:00 Diphenhydramine HCl (Benadryl) 25 mg Q4H PRN IM ITCHING OR RASH; Start at 11:00 Ketorolac Tromethamine (Toradol) 15 mg DAILY@06 PRN INJ ADMINSTER BY SURGEON ONLY; Start 02/18/17 at 06:00; Stop 02/22/17 at 05:59 Bupivacaine HCl/ Epinephrine Bitart (Marcaine 0.25%/ Epi (Sdv) 30 ml) 20 ml DAILY@06 PRN INJ ADMINSTER BY SURGEON ONLY; Start 02/18/17 at 06:00; Stop at 05:59 Naloxone HCl (Narcan) 0.2 mg Q2M PRN IV DECREASED REPIRATORY RATE; Start at 11:00 Hydromorphone HCl (Dilaudid) 3 mg Q4H PRN IV PAIN; Start 02/17/17 at 16:00 Amlodipine Besylate (Norvasc) 5 mg DAILY PO Last administered on 02/19/17t 09: 00; Admin Dose 5 MG; Start 02/18/17 at 09:00 EVA COSTA MD Feb 19, 2017 10:35
--- NOTE | 2017-02-19 12:44 | DS ---
Date/Time of Note Date/Time of Note DATE: 02/19/17 TIME: 12:42 Discharge Summary Admission/Discharge Info Admit Date/Time Feb 17, 2017 at 05:21 Discharge Date/Time 02/19/17 Final Diagnosis Status post left total knee arthroplasty. Patient Condition: Stable Hospital Course On the day of admission, the patient underwent left total knee arthroplasty Intraoperative complications: None Postoperative complications: None The patient was given prophylactic antibiotics and anticoagulants. On the day of surgery and first postoperative day patient was started on gait training and was taught usual restrictions following knee replacement Suction drain removed on the first postoperative day and the dressings were changed. The wound was found to be clean and healing well. There was no sign of infection. Pain cocktail given. On the second postoperative day, patient continued with inpatient PT. Dressings were changed. Wound was found to be clean and healing well. No signs of infection. Pain cocktail given. On the day of discharge, the wound was clean and healing well; there was no sign of infection. The dressings were changed. Discharge Temperature: 97.7 Discharge White Blood Cell Count: 9.1 Discharge Hemoglobin: 9.8 The patient was discharged home with home health. Arrangements were made for visiting nurses and home health/physical therapy. Tegaderm with pad also provided for patient. Instructions given on how to use to keep wound dry while showering. Patient may discontinue use of Tegaderm with pad after rodrigo have been removed around 10 days postoperatively. The patient will be seen in office at scheduled postoperative evaluation date given on their preoperative exam. Should patient complain of any problems prior to scheduled postoperative evaluation date, they may call into outpatient clinic to determine if they need to be scheduled at sooner appointment to be seen immediately if needed. Discharge medications: As per medication reconciliation form Diet: Same as preadmission diet. This is Joanna Rock PA-C dictating discharge summary for Dr. Tyree Modi. Home Meds Reported Medications Amlodipine Besylate* (Norvasc*) 5 Mg Tablet, 5 MG PO DAILY, TAB 02/16/17 Follow-up Plan In 3 weeks post-op surgery. May f/u sooner if she has any issues. She is aware. Pending Labs Laboratory Tests Test 02/19/17 04:39 White Blood Count 9.110^3/ul (4.8-10.8) Red Blood Count 3.2410^6/ul (4.20-5.40) Hemoglobin 9.8g/dl (12.0-16.0) Hematocrit 30.4% (37.0-47.0) Mean Corpuscular Volume 93.8fl (82.0-101.0) Mean Corpuscular Hemoglobin 30.2pg (29.0-33.0) Mean Corpuscular Hemoglobin Concent 32.2g/dl (32.0-37.0) Red Cell Distribution Width 13.3% (11.5-14.5) Platelet Count 24937^3/UL (140-415) Mean Platelet Volume 10.9fl (7.4-10.4) Neutrophils % 72.4% (39.0-77.0) Lymphocytes % 21.7% (15.0-51.0) Monocytes % 4.6% (0.0-11.0) Eosinophils % 0.7% (0.0-7.0) Basophils % 0.2% (0.0-2.0) Nucleated Red Blood Cells % 0.0/100WBC (0.0-0.0) Neutrophils # 6.610^3/ul (1.6-7.5) Lymphocytes # 2.010^3/ul (0.8-2.9) Monocytes # 0.410^3/ul (0.3-0.9) Eosinophils # 0.110^3/ul (0.0-0.5) Basophils # 0.010^3/ul (0.0-0.1) Nucleated Red Blood Cells # 0.010^3/ul (0.0-0.0) JOANNA HUGHES PA-C Feb 19, 2017 12:44
[2017-02-19 20:48] VITALS: BP 148/70; RESP 20
== END 2017-02-19 21:55 | disposition home health service (06) | DRG 470 ==
LOC: REC 05:21 → MS1 14:36
PROC: 0SRD0J9 Replacement of Left Knee Joint with Synthetic Substitute, Cemented, Open Approach (ICD-10-PCS; principal; 2017-02-17 07:30)
DX: M17.12 Unilateral primary osteoarthritis, left knee (principal); I34.1 Nonrheumatic mitral (valve) prolapse; I10 Essential (primary) hypertension
CPT/HCPCS: 73560; 80053; 81003; 85025; 86850; 86900; 86901; 86920; 87086; 97110; 97116; 97162; 97530; C1776; J0131; J0330; J0690; J0735; J1100; J1885; J2250; J2274; J2405; J2710; J2765; J2795; J3010; J3370; J7120; J7121

== ENCOUNTER → 2017-03-10 | Outpatient (CLI) | payer MEDICARE, OTHER ==
--- NOTE | 2017-03-10 13:48 | PN ---
Date/Time of Note Date/Time of Note DATE: 03/10/17 TIME: 13:42 Outpatient Progress Note Chief Complaint 3 week postop left total knee replacement. HPI 71-year-old female presents today for three-week postoperative visit status post left total knee arthroplasty performed on 02/17/2017. Patient continues to use walker and expresses complaints of stiffness to the knee. She states that stiffness has improved but she still has limited range of motion. Currently performing at home physical therapy. Denies any pain complaints especially with weightbearing. At times, if patient does have discomfort, she takes Tylenol as she feels that Tylenol is easier on her stomach. Patient states that she has chronic stomach issues and is currently taking no prescription medications of any kind due to flareup of gastritis with medications. She does feel discomfort when taking any medication but states that Tylenol helps and is effective in treating pain. Denies any falls or new injury. Denies any chest pain/tightness. No calf pain. Review of Systems Const: No Fever, no chills, no Fatigue, normal appetite, no diaphoresis. Resp: No SOB, no wheezing, no chest pain. CV: No chest pain, no palpitaions, no MCCRARY. Physical Exam Blood pressure is 156/74, temperature is 98.7, pulse is 87, respiratory rate is 13, height is 5 foot 8-1/2 inches, weight is 210 pounds. General Appearance: well-developed, well-nourished, in no acute distress. Left knee: Surgical wound healing well with no signs of infection. Naomie have been removed and Steri-Strips are intact. No tenderness to palpation to the knee today. 15 lag from full extension. Patient is able to flex up to 90 . On passive range of motion there is 15 lag from full extension with flexion up to 90 as well. Negative Homans sign. Normal sensory examination to light touch. Patient had previous numbness to the lateral side of the knee status post surgery which she states has improved. Toes freely movable. 2+ pedal pulses. On ambulation, there is noted stiffness while patient is walking. Patient uses front wheeled walker for assisted ambulation. Is able to apply full weightbearing. Patient also mentions that she does fully weight-bear without assisted ambulatory device at home. Allergies Coded Allergies: codeine (Verified Allergy, Intermediate, RASH, 02/17/17) Assessment/Plan -Wound healing well after staple removal. No signs of infection. -Continue ASA 325 mg twice daily for DVT prophylaxis until 6 weeks status post surgery. Patient has been taking 1 tablet a day due to fear of GI issues. Patient has an experience GI issues with aspirin and was strongly encouraged to continue twice daily dosing for DVT prophylaxis. -May continue Tylenol as it is effectively treating pain. If patient would like , she may trial taking a half tablet of [place] especially right before initiating physical therapy. -No signs of DVT. -Patient was made aware of concern in regards to decreased range of motion as she is only able to flex up to 90. Education materials for at home therapy exercises provided today. Stressed improved range of motion. -PT prescription provided today for outpatient physical therapy. Patient advised to discontinue at home physical therapy and initiate outpatient as soon as possible. -Follow-up at 6 week postop appointment. X-rays will be performed at 6 weeks postoperative appointment. -Patient made aware that they may follow-up sooner, should they experience any issues or complications as we will be glad to see them. -Order for outpatient physical therapy given today with focus on improved range of motion. -Antibiotic card provided today. Antibiotic card provided for patient. Patient made aware that dental prophylaxis will be necessary prior to any dental procedure for the remainder of their lifetime. Patient is aware that they must contact their dentist prior to any procedure to inform them of previous joint replacement with prosthesis implant so appropriate antibiotic may be prescribed to lower risk of joint infection status post surgery. Card will also serve as confirmation should patient be traveling and have to go through security such as at an airport. Medications Home Meds Reported Medications Amlodipine Besylate* (Norvasc*) 5 Mg Tablet, 5 MG PO DAILY, TAB 02/16/17 JOANNA HUGHES PA-C March 10, 2017 13:48
== END | disposition home or self-care (01) ==
LOC: HKI 13:12
DX: Z47.1 Aftercare following joint replacement surgery (principal); Z96.652 Presence of left artificial knee joint
CPT/HCPCS: G0463

== ENCOUNTER → 2017-03-31 | Outpatient (CLI) | payer MEDICARE, OTHER ==
--- NOTE | 2017-03-31 14:34 | PN ---
Date/Time of Note Date/Time of Note DATE: 03/31/17 TIME: 14:30 Outpatient Progress Note Chief Complaint 6 weeks postoperative follow-up status post left total knee replacement HPI 71-year-old female presents today for 6 week postoperative visit status post left total knee arthroplasty performed on 02/17/2017. Patient states that she has significantly improved in regards to her functionality and has returned to her activities of daily living. She is now walking independently with no assisted ambulatory device. She does experience however, some discomfort that is typically at night when she is resting. Discomfort is not a daily experience but states that it can occur usually on the days where she has been very active. She does have some stiffness to the left knee when she is descending stairs. Denies any falls. Denies any calf pain. Denies any shortness of breath or chest pain. No chest tightness. Review of Systems Const: No Fever, no chills, no Fatigue, normal appetite, no diaphoresis. Resp: No SOB, no wheezing, no chest pain. CV: No chest pain, no palpitaions, no MCCRARY. Physical Exam Blood pressure is 159/75, temperature is 98.3, pulse is 67, respiratory rate is 12, height is 5 foot 8 inches, weight is 214 pounds. General Appearance: well-developed, well-nourished, in no acute distress. Left knee: Gait showing slight limp but walking independently today on exam. Gait is nonantalgic. Patient has 5 lag from full extension. Able to actively flex up to 115. Negative Homans sign. No signs of DVT although there is lower extremity swelling. No calf pain on pressure/palpation. 5/5 strength on resistance with flexion and extension. Imaging X-ray of the left knee performed on 03/31/2017 showing all components appearing well aligned, attached and integrated to the bone. No signs of any lucency between metal and bone. Allergies Coded Allergies: codeine (Verified Allergy, Intermediate, RASH, 02/17/17) Assessment/Plan -Patient progressing well -Surgical wound continues to heal well. -No signs of infection or DVT on exam. -X-rays showing no abnormalities in regards to prosthesis attachment to bone. -Range of motion is improved status post total knee replacement. -Antibiotic prophylaxis card provided on last visit. -Follow-up 6 months status post surgery. If patient is doing well at that time , possible follow-up on as-needed basis from that point. Dental prophylaxis discussed in detail today. Patient given prophylaxis card with antibiotic options. Should patient have allergy to specific medication ( eg penicillin) alternative options are also provided on the card. Patient is aware that antibiotics should be taken prior to any procedures to prevent increased risk of infection to the joint. Patient is aware that this will be for the rest of their life. Patient states understanding and compliance. Dr. Modi present for examination today and agrees with plan. Medications Home Meds Reported Medications Amlodipine Besylate* (Norvasc*) 5 Mg Tablet, 5 MG PO DAILY, TAB 02/16/17 JOANNA HUGHES PA-C Mar 31, 2017 14:34
--- NOTE | 2017-03-31 16:06 | RADRPT ---
PROCEDURE: XR left knee. CLINICAL INDICATION: Knee pain. TECHNIQUE: AP weightbearing, lateral weightbearing and sunrise views are available for review. COMPARISON: 02/17/2017 FINDINGS: There is a constrained total knee replacement. There is no evidence of loosening of the prosthesis. There is no evidence of hardware failure. The osseous structures are normal in mineralization, archi tecture and alignment No acute fracture or dislocation is seen.No osseous lesions are identified. T he soft tissues are unremarkable . IMPRESSION: Unremarkable constrained total knee replacement. RPTAT: HGDB .Praneeth Stewart MD, MD Date Time Electronically viewed and signed by .Praneeth Stewart MD, on 03/31/2017 16:06 .B/
== END | disposition home or self-care (01) ==
LOC: HKI 13:26
DX: Z47.1 Aftercare following joint replacement surgery (principal); Z96.652 Presence of left artificial knee joint; M25.562 Pain in left knee

== ENCOUNTER → 2017-04-02 | Outpatient (CLI) | payer MEDICARE, OTHER ==
--- NOTE | 2017-04-02 14:49 | PN ---
Date/Time of Note Date/Time of Note DATE: 04/02/17 TIME: 14:23 Outpatient Progress Note Chief Complaint Wound Check HPI 71 y/o F presents today for wound check. After her visit yesterday, she noticed small drainage from the middle third of the wound. No pain, fever, chills or systemic symptoms of infection. Mild erythema. Review of Systems Const: No Fever, no chills, no Fatigue, normal appetite, no diaphoresis. Resp: No SOB, no wheezing, no chest pain. CV: No chest pain, no palpitaions, no MCCRARY. Physical Exam BP: 137/71, 97.9 degress, HR 91, Resp rate 12, height 5'8" weight 214lbs General Appearance: well-developed, well-nourished, in no acute distress. Left knee: 3-5 mm small pustule style wound to the middle third of surgucal scar. Scant drainage. No TTP. Normal sensory exam. Allergies Coded Allergies: codeine (Verified Allergy, Intermediate, RASH, 02/17/17) Assessment/Plan * Culture swab obtained today * keflex QID x 10 days given. * f/u 1 week/after completion of abx * return sooner if worsening and pt states understanding. Medications Home Meds Reported Medications Amlodipine Besylate* (Norvasc*) 5 Mg Tablet, 5 MG PO DAILY, TAB 02/16/17 JOANNA HUGHES PA-C Apr 02, 2017 14:49
== END | disposition home or self-care (01) ==
LOC: HKI 15:45
DX: Z48.01 Encounter for change or removal of surgical wound dressing (principal)

== ENCOUNTER → 2017-04-14 | Outpatient (CLI) | payer MEDICARE, OTHER ==
--- NOTE | 2017-04-15 23:17 | HKNOTE ---
DATE OF SERVICE: 04/14/2017 The patient is about 7 weeks following left total knee replacement. She was seen by Lee a week ag o. She had a small scab in the middle of the knee wound, which she thought might be a stitch absces s, and he put her on Keflex. She states it is very much better now. She shows me a photograph take n of it a week ago, where it looked like an impending boil. Today it is just a tiny spot which is n ot fully healed, but there is no drainage from it. Temperature is 98. Range of motion of the knee today is extension lacks 5 degrees, flexion is to 90 degrees. She is getting physical therapy twice a week. MANAGEMENT: The patient currently is not able to take pain medications, so she has not been taking any before she goes for physical therapy. She was advised that she probably will need a manipulatio n of her knee under general anesthesia. She states she has "a bad stomach" and almost all medicatio ns bother her stomach. She is given a prescription for Zofran and Protonix, and amoxicillin, and sh e will be seen again in a week's time for reevaluation. She was given a prescription for the physic al therapist to increase the number of therapies a week. Dictated By: ROSIBEL SANDERS/MALU Conf#: [id number] DID#: [id number]
== END | disposition home or self-care (01) ==
LOC: HKI 13:33
DX: Z47.1 Aftercare following joint replacement surgery (principal); Z96.652 Presence of left artificial knee joint

== ENCOUNTER → 2017-04-28 | Outpatient (CLI) | payer MEDICARE, OTHER ==
--- NOTE | 2017-04-28 14:58 | PN ---
Date/Time of Note Date/Time of Note DATE: 04/28/17 TIME: 14:55 Outpatient Progress Note Chief Complaint Wound check HPI 71-year-old female presents today for wound check. Last seen on 04/14/2017 and was given amoxicillin [address] Modi for additional antibiotic coverage. States significant improvement from the wound as it is well-healed per patient account. She is also initiated physical therapy in which her range of motion is significantly improved. Continues with aches and pains in which she states Celebrex is effective. Denies any falls or new injury. Presents today for wound check. Review of Systems Const: No Fever, no chills, no Fatigue, normal appetite, no diaphoresis. Resp: No SOB, no wheezing, no chest pain. CV: No chest pain, no palpitaions, no MCCRARY. Physical Exam Blood pressure is 146/71, temperature is 98.5, pulse is 106, respiratory rate is 12, height is 5 foot 8 inches, weight is 214 pounds General Appearance: well-developed, well-nourished, in no acute distress. Left knee: Surgical wound is clean dry and intact. No signs of infection. No erythema. No tenderness to palpation. Normal sensory examination to light touch. Well-healed scarring. There is about 5 lag from full extension and patient is flexing up to around 115-120. Walking independently. Allergies Coded Allergies: codeine (Verified Allergy, Intermediate, RASH, 02/17/17) Assessment/Plan * At this stage patient continues to do well. * Antibiotics are no longer necessary as no signs of infection are observed. * Continue with physical therapy as needed. * Patient may follow-up 6 months status post surgery for repeat evaluation. * May follow-up sooner should there be any complications and patient states that she is aware. Antibiotic card provided for patient. Patient made aware that dental prophylaxis will be necessary prior to any dental procedure for the remainder of their lifetime. Patient is aware that they must contact their dentist prior to any procedure to inform them of previous joint replacement with prosthesis implant so appropriate antibiotic may be prescribed to lower risk of joint infection status post surgery. Card will also serve as confirmation should patient be traveling and have to go through security such as at an airport. Medications Home Meds Reported Medications Amlodipine Besylate* (Norvasc*) 5 Mg Tablet, 5 MG PO DAILY, TAB 02/16/17 JOANNA HUGHES PA-C Apr 28, 2017 14:58
== END | disposition home or self-care (01) ==
LOC: HKI 13:59
DX: Z48.00 Encounter for change or removal of nonsurgical wound dressing (principal); Z98.890 Other specified postprocedural states

== ENCOUNTER → 2017-08-18 | Outpatient (CLI) | payer MEDICARE, OTHER ==
--- NOTE | 2017-08-18 17:54 | RADRPT ---
PROCEDURE: Left knee radiographs. CLINICAL INDICATION: Left knee pain. Postop. TECHNIQUE: Three views. Weight bearing. Frontal, lateral, and patellar view. COMPARISON: 03/31/2017. FINDINGS: There is no fracture or dislocation. The soft tissues are normal. There is a total left knee constrained arthroplasty which appears satisfactory. There is no lytic or blastic lesion. IMPRESSION: 1. Satisfactory postoperative appearance of the left knee. RPTAT: QQ .Gonzalo Scott MD, MD Date Time Electronically viewed and signed by .Gonzalo Scott MD, MD on 08/18/2017 17:53 .R/
--- NOTE | 2017-08-19 08:39 | HKNOTE ---
DATE OF SERVICE: 08/18/2017 MAIN COMPLAINT: Pain in the left knee following total knee replacement. HISTORY OF MAIN COMPLAINT: The patient is a 72-year-old female who underwent a left knee replacemen t on 02/17/2017. She is being seen on 08/18/2017; surgery on 02/17/2017. She has been very pleased with the results of the surgery, except of late she has been getting pain in the knee on getting up from a sitting position or going up and down stairs, especially going up. VITAL SIGNS: Temperature is 98.1, blood pressure 130/65. The patient walks without a walking aid. Her gait is normal except that she has arthritis in the ri ght knee, so she walks with her right knee slightly flexed. Examination of the left knee: Extension is full, both active and passive. Flexion is to 125 degree s, both active and passive. No external sign of infection or inflammation. IMAGING: X-rays of the left knee obtained today (3 views) at the [facility] were reviewed. These show that all components are well attached to the bone and well aligned. However, the patella is tracking laterally. MANAGEMENT: The patient is advised that this patella alignment problem is exactly the underlying et iology of her pain given that the pain is aggravated by getting up from sitting or from going up and down stairs. This was all explained to her in a great deal of detail. A lateral release was explained to her. M y notes do not indicate that a lateral release was performed at surgery. The patient is being referred to Dr. Hoang Curran for an arthroscopic lateral release. Her images were sent over to Dr. Curran and an appointment is made for her with Dr. Curran's office. The detai ls of the procedure were discussed somewhat with her including [facility] and no need for her to stay in the hospital. She will be seen by me again in 6 months' time for reevaluation. Dictated By: ROSIBEL SANDERS/MALU Conf#: [id number] DID#: [id number]
== END | disposition home or self-care (01) ==
LOC: HKI 10:50
DX: T84.84XA Pain due to internal orthopedic prosthetic devices, implants and grafts, initial encounter (principal); Y83.8 Other surgical procedures as the cause of abnormal reaction of the patient, or of later complication, without mention of misadventure at the time of the procedure
CPT/HCPCS: 73562; G0463